=== PATIENT | female | born 1980 | race Caucasian/White ===

== ENCOUNTER 2017-09-16 02:58 | Emergency (ER) | payer MEDICARE ==
[~2017-09-16] VITALS: Ht 162.6 cm; Wt 63.5 kg
--- NOTE | 2017-09-16 03:06 | NUR ---
Dr. Dougherty at bedside for MSE.
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
--- NOTE | 2017-09-16 03:35 | NUR ---
Patient's father reports patient takes lamictal and "xafra"
--- NOTE | 2017-09-16 04:00 | NUR ---
Patient sleeping, no acute signs of distress, father at bedside.
--- NOTE | 2017-09-16 05:00 | NUR ---
Patient sleeping, no acute signs of distress, father at bedside.
--- NOTE | 2017-09-16 06:00 | NUR ---
Patient discharged to home in stable conditon. Written and verbal after care instructions given. Patient verbalizes understanding of instructions. Patient ambulated out of ER with steady gait, VSS, no acute signs of distress, patient reports feeling better, all belongings taken.
[2017-09-16 06:06] VITALS: BP 116/68
== END 2017-09-16 06:07 | disposition home or self-care (01) ==
LOC: ER 03:03
DX: F41.0 Panic disorder [episodic paroxysmal anxiety] (principal); F41.9 Anxiety disorder, unspecified; F31.9 Bipolar disorder, unspecified; F17.210 Nicotine dependence, cigarettes, uncomplicated; F12.10 Cannabis abuse, uncomplicated
CPT/HCPCS: A4663

== ENCOUNTER 2019-08-22 11:18 | Emergency (ER) | payer MEDICARE ==
[~2019-08-22] VITALS: Ht 162.6 cm; Wt 68.0 kg
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
--- NOTE | 2019-08-22 11:35 | NUR ---
ERMD at bedside for MSE
[2019-08-22 12:00] LABS: *URINE HCG, QUAL NEGATIVE (NEGATIVE)
[2019-08-22] MEDS ORDERED: KETOROLAC TROMETHAMINE 30 MG INJ ONE (12:05)
[2019-08-22] MEDS ORDERED: KETOROLAC TROMETHAMINE 30 MG INJ IM ONE (12:15)
--- NOTE | 2019-08-22 12:28 | NUR ---
Patient discharged to home in stable conditon. Written and verbal after care instructions given. Patient verbalizes understanding of instructions. Patient ambulated with stable gait.
[2019-08-22 12:31] VITALS: BP 110/83
== END 2019-08-22 12:32 | disposition home or self-care (01) ==
LOC: ER 11:18
DX: M54.31 Sciatica, right side (principal); F17.200 Nicotine dependence, unspecified, uncomplicated; Z79.899 Other long term (current) drug therapy
CPT/HCPCS: 84703; 96372; 99283; J1885; A4663